=== PATIENT | male | born 1945 | race Caucasian/White ===

== ENCOUNTER → 2019-02-23 09:44 | Outpatient (CLI) | payer MEDICARE, BC, SELFPAY ==
--- NOTE | 2019-02-23 | DI.RAD.S_ITS ---
PROCEDURE: FL BARIUM SWALLOW W SPEECH INDICATIONS: Cough TECHNIQUE: Examination was conducted in conjunction with speech pathology per standard protocol. In the lateral projection, filming was performed of the patient swallowing. AP projection filming may also be performed with patient swallowing. COMPARISON: None. FINDINGS: Function: The oral preparatory phase appears normal, with proper containment. The subsequent oral propulsive phase, pharyngeal phase, and esophageal phase of swallowing also appear normal with all proffered substances. No laryngotracheal penetration or aspiration. No pathologic vallecular pooling. Morphology: No cricopharyngeal bar is identified. No cervical esophageal webs. No Zenker's diverticulum. No strictures. IMPRESSION: No tracheal aspiration. Dictated by: Lester Quach M.D. on 02/23/2019 at 11:45 Approved by: Lester Quach M.D. on 02/23/2019 at 11:45
--- NOTE | 2019-02-23 14:38 | ST.SWALLOW ---
Visit Care Team Role Provider Type Zackery Arzola MD Attending Provider Physician Specialty: Wound Care Address: [address] [place] [address], [id number] Email: [email or web address] Modified Barium Swallow Study [employer] Modified Barium Swallow Study Start: 02/23/19 12:38 Freq: Status: Active Protocol: Document 02/23/19 12:39 LNK (Rec: 02/23/19 13:26 LNK [id number]) Modified Barium Swallow Study Total Time Visit Start Time 10:00 Visit Stop Time 10:30 Total Visit Minutes [address] Zackery Arzola Reason for Referral chronic cough; dysphagia Setting Setting Outpatient Care Patient Information Identification Type Name,ID Wristband Patient History Han Hernadez presentd for a Modified Barium Swallow Study (MBSS) at the referral of his physician, Zackery Arzola MD. Han provided his medical history as including ACDF surgery ~ 8 years ago, after which his current symptoms started. Additionally he reported that he has a diagnosed Schatzki ring that has been dialated ~every 2-3 years. It has currently derrick 2 .5 years since his last dilation. Relative to his swallowing, Han reported that he frequently chokes during meals . He can choke on liquids as well as solids. he chokes when eating, talking during meals and even if he is simply sitting and doing nothing in particular. He added that his voice is also weakened, and will fatigue easily, especially if he is stressed. Thesevoice changes started to occur about 4-5 years ago, Han reported. Subjective Observations Han was seated in the fluoroscopy chair and provided with a description of and instructions for the procedure Patient Positioning Position View Lateral Imaging Lateral View Textures Administered Trials Presented Thin Liquid via Spoon,Thin Liquid via Cup,Farnsworth Liquid via Spoon,Farnsworth Liquid via Cup,Pudding Thick Liquid via Spoon,Regular Textures Oral Phase Source: MBSIMP (TM) (C) Bolus Specific Scoring Grid Lip Closure WFL Tongue Control During Bolus Hold WFL Bolus Prep/Mastication WFL Bolus Transport/Lingual Motion WFL A/P Lingual Propulsion Delay No Oral Residue WFL Nasal Regurgitation No Additional Oral Phase Observations Informal observation of pt's OM structures indicated them to be WFL for form and function. Natural dentition in good hygeine. Palatal tonsils observed. Pharyngeal Phase Source: MBSIMP (TM) (C) Bolus Specific Scoring Grid Delayed Initiation of Pharyngeal Swallow Yes: Mild premature spillage to the valecula Soft Palate Elevation WFL Tongue Base Strength/Range of Motion Moderate Impairment Residue Along the Tongue Base Yes Clearance of Residue Along Tongue Base Mild Impairment Laryngeal Elevation Mild Impairment Anterior Hyoid Movement Moderate Impairment Epiglottic Range of Motion Mild Impairment Vallecular Residue Yes Clearance of Vallecular Residue Moderate Impairment Laryngeal Vestibular Closure Minimal Impairment Pharyngeal Stripping Wave Moderate Impairment Posterior Pharyngeal Wall Residue Yes Clearance of Posterior Pharyngeal Wall Mild Impairment Residue Upper Esophageal Sphincter Opening Minimal Impairment Residue in the Pyriform Sinuses Yes: Moderate to significant residue in pyriform sinuses bilaterally Clearance of Residue in the Pyriform Moderate Impairment Sinuses Esophageal Clearance Upright Position Minimal Impairment Additional Pharyngeal Phase Observations Cricopharyngeal bar located in typical position, did not appear to interfere with bolus flow. Osteophytes noted on C4-C5, that alered but did not impede flow of the bolus. Hyolaryngeal elevation was adequate with reduced anterior movement of the hyoid bone effecting the tongue base positioning and reduced contact at the linguapharyngeal area. No pharyngeal stripping observed from C3-C5 area of posterior pharyngeal wall. This, with the weakend tongue base resulted in diminished control of the bolus flow. Significant pooling within the pyriform sinuses resulted with reduced ability to clear the pooling. Pooling also observed in the area of the valeculla post-swallows as well as along the posterior pharyngeal wall. Epiglottic inverstion appeared to be WFL to mildy impaired. No penetration into laryngeal vestibule was observed. 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 Han reported that his symptoms began after his procedure. Suspect that, although there was no penetration and/or aspiration observed, that his choking is due to the significant pharyngeal pooling in his valeculla and pyriform sinuses . Pharyngeal muscle stripping is also significantly reduced , influencing bolus control and contributing to pooling in the pyriform sinuses. Suspect that as the valeculla and pyriform sinus pooling increases during meals along with talking and head turning during the meals, the pooled substances spill over into the airway causing choking. It is also possible that the vocal weakness reported by the pt is related tot he ACDF surgery. 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 Recommend that the pt be 1) referred to GI to determine the current status of his Shatzki's ring; 2) referral to [facility] for stroboscopy evaluation of pt's vocal fold status re: weakness reported by the pt; and 3) referral to ST for linguapharyngeal exercises to increase strength of swallowing and/or implement safe swallow strategies to reduce aspiration risk Rehabilitation Potential Excellent Patient Appropriate for Therapy Yes Recommendations Diet Liquids Order Thin Diet Order Regular Medication Recommendation As Tolerated Treatment Plan Therapy Recommendations Outpatient Speech Therapy Recommended Referrals Primary Care Physician,GI Consult,ENT Consult
== END ==
PROVIDERS: Visit Provider Internal Medicine
DX: R05 Cough (principal); R13.10 Dysphagia, unspecified
CPT/HCPCS: 74230; 92611